=== PATIENT | male | born 1990 | race American Indian/Alaskan Native ===

== ENCOUNTER 2021-08-09 14:50 | Emergency (ER) | payer SELFPAY ==
[2021-08-09] MEDS ORDERED: charcoal activated SOLUTION 25 GM/120 ML PO ONE (15:12)
--- NOTE | 2021-08-09 15:12 | Emergency Department Report ---
ED Psych HPI - General Stated Complaint: SI Time Seen by Provider: 08/09/21 15:11 - History of Present Illness Initial Comments: Patient was brought in as an overdose and psychiatric patient. He took approximately 5 Tylenol. He states that "there were too many things going on in his head."Patient states that his does not love him anymore. He took Tylenol because of this. He states that he took 5 or 6. He promptly vomited and did not keep them down. He still wants to hurt himself and states that he was trying to hurt himself by the overdose. He is not hearing voices. He is not homicidal. He has never tried to do anything like this before. He denies taking any other substance or medication. - Related Data Allergies Allergy/AdvReac Type Severity Reaction Status Date / Time No Known Allergies Allergy Unverified 08/09/21 15:14 ED Review of Systems ROS: Stated complaint: SI Other details as noted in HPI Comment: All other systems reviewed and negative Constitutional: denies: fever Eyes: denies: vision change ENT: denies: throat pain Respiratory: denies: cough Cardiovascular: denies: chest pain Endocrine: denies: unexplained weight loss Gastrointestinal: as per HPI, vomiting. denies: abdominal pain Genitourinary: denies: dysuria Musculoskeletal: denies: back pain Skin: denies: rash Neurological: denies: headache Psychiatric: as per HPI, suicidal thoughts Hematological/Lymphatic: denies: easy bruising ED Past Medical Hx - Past Medical History Previous Medical History?: No - Family History Family history: no significant ED Physical Exam - General Limitations: No Limitations, Other ( Pulse ox is noted and normal.) General appearance: alert, in no apparent distress - Head Head exam: Present: atraumatic, normocephalic, normal inspection - Eye Eye exam: Present: normal appearance, EOMI. Absent: scleral icterus - ENT ENT exam: Present: normal exam, normal orophraynx, mucous membranes moist - Neck Neck exam: Present: normal inspection. Absent: meningismus - Respiratory Respiratory exam: Present: normal lung sounds bilaterally. Absent: respiratory distress - Cardiovascular Cardiovascular Exam: Present: regular rate, normal rhythm - GI/Abdominal GI/Abdominal exam: Present: soft. Absent: tenderness - Extremities Exam Extremities exam: Present: normal capillary refill - Back Exam Back exam: Absent: CVA tenderness (R), CVA tenderness (L) - Neurological Exam Neurological exam: Present: alert, oriented X3, normal gait. Absent: motor sensory deficit - Psychiatric Psychiatric exam: Present: flat affect, suicidal ideation - Skin Skin exam: Present: warm, dry ED Course Vital Signs 08/09/21 15:11 Temperature 99.1 F Pulse Rate 71 Respiratory 16 Rate Blood Pressure 141/80 [Left] O2 Sat by Pulse 99 Oximetry - Reevaluation(s) Reevaluation #1: 08/09/21 15:01 Patient was seen upon arrival. Hold was placed. Orders were placed. ED Medical Decision Making - Medical Decision Making Patient came in as an overdose. He admits to being suicidal. He was placed on a hold. Labs have been ordered for medical clearance. Psychiatric services will need to see the patient. Critical Care Time: No Critical care attestation.: If time is entered above; I have spent that time in minutes in the direct care of this critically ill patient, excluding procedure time. ED Disposition Clinical Impression: Suicidal ideation, Overdose Disposition: 30 STILL A PATIENT Is pt being admited?: No Condition: Stable
[2021-08-09 15:39] LABS: Hematocrit 41.8 % (35.5-45.6); Hemoglobin 14.7 gm/dl (11.8-15.2); Mean Corpuscular HGB Conc 35 % (32-34); Mean Corpuscular Volume 86 fl (84-94); Platelet Count 290 K/mm3 (140-440); Red Blood Count 4.89 M/mm3 (3.65-5.03); Red Cell Distribution Width 13.3 % (13.2-15.2)
[2021-08-09 16:02] LABS: Alanine Aminotransferase 25 units/L (7-56); Albumin 4.4 g/dL (3.9-5); BUN/Creatinine Ratio 8; Blood Urea Nitrogen 7 mg/dL (9-20); Hemolysis Index 22
[2021-08-09 16:18] LABS: Amphetamine Screen,Urine Negative; Benzodiazepines Screen,Urine Negative; Cannabinoid Screen,Urine Negative; Cocaine Screen,Urine Negative; Methadone Screen,Urine Negative; Opiate Screen,Urine Negative
[2021-08-09 18:50] LABS: Basophils % (Auto) 0.8 % (0.0-1.8); Eosinophils # (Auto) 0.1 K/mm3 (0.0-0.4); Eosinophils % (Auto) 1.7 % (0.0-4.3); Hematocrit 42.5 % (35.5-45.6); Hemoglobin 14.8 gm/dl (11.8-15.2); Lymphocytes # (Auto) 2.3 K/mm3 (1.2-5.4); Lymphocytes % (Auto) 48.1 % (13.4-35.0); Mean Corpuscular HGB Conc 35 % (32-34); Mean Corpuscular Volume 87 fl (84-94); Monocytes # (Auto) 0.6 K/mm3 (0.0-0.8); Monocytes % (Auto) 12.7 % (0.0-7.3); Platelet Count 291 K/mm3 (140-440); Red Blood Count 4.89 M/mm3 (3.65-5.03); Red Cell Distribution Width 13.2 % (13.2-15.2)
[2021-08-09 19:52] LABS: Bilirubin,Urine Negative (Negative); Blood,Urine Negative (Negative); Color,Urine Yellow (Yellow)
[2021-08-09 19:53] LABS: Protein,Urine <15 mg/dL mg/dL (Negative)
[2021-08-09 19:55] LABS: WBC,Urine < 1.0 /HPF (0.0-6.0)
[2021-08-10 10:26] VITALS: BP 104/40
--- NOTE | 2021-08-10 11:22 | Consultation ---
History of Present Illness - Reason for Consult Consult date: 08/10/21 Reason for consult: overdose - History of Present Psychiatric Illness Per ED Note: Patient was brought in as an overdose and psychiatric patient. He took approximately 5 Tylenol. He states that "there were too many things going on in his head."Patient states that his does not love him anymore. He took Tylenol because of this. He states that he took 5 or 6. He promptly vomited and did not keep them down. He still wants to hurt himself and states that he was trying to hurt himself by the overdose. He is not hearing voices. He is not homicidal. He has never tried to do anything like this before. He denies taking any other substance or medication. Abraham Bourne is a 30 year old male with no prior psychiatric history who presents to the ED for overdosing. In my interview with the patient,he is calm. The patient reports that he was having an argument with his " I couldn't take it anymore and decided to take Tylenol 5 pills to kill myself." The patient is remorseful for his actions. The patient is employed and states he wants to go home to his and children. He denies any current suicidal/homicidal ideation and denies hallucinations. Psych History Diagnoses: Denies Suicide attempts or Self-harm behavior:Denies Prior psychiatric hospitalizations: Denies Substance Abuse history:Denies Previous psychiatric medications tried:Denies Outpatient treatment: Denies PAST MEDICAL HISTORY: none reported Family Psychiatric History: None reported or documented SOCIAL HISTORY Marital Status: Living Arrangements: Lives with and 2 children Employment Status:employed Access to guns/weapons: Denies Education: 12th Grade History of Abuse: Denies Legal History: none reported REVIEW OF SYSTEMS Constitutional: Negative for weight loss ENT: Negative for stridor Respiratory: Negative for cough or hemoptysis All other systems reviewed and are negative MENTAL STATUS EXAMINATION General Appearance and Behavior: Age appropriate, good hygiene, wearing appropriate clothes, sleeping, cooperative Cooperation: Participating but drowsy Psychomotor Behavior: unremarkable and within normal limits Mood: "OK" Affect and affective range: congruent with mood Thought Process:Goal directed Thought Content: Not suicidal Speech: Normal volume, Regular rate and rhythm, Suicidal Ideation: Denies Homicidal Ideation:Denies Hallucinations: Denies Delusions: None elicited Impulse Control: Questionable Insight and Judgment: Limited insight and fair judgment, Memory: Normal, Attention: Normal Orientation: Alert, oriented Assessment and Plan (1)Unspecified mood disorder- F39 Treatment plan DC 1013 Risks, benefits and alternatives of medications discussed with the patient, questions answered and consent obtained from patient. PSYCHOTHERAPY: Supportive psychotherapy provided MEDICAL: Per primary team DELIRIUM PRECAUTIONS: Please re-orient patient frequently, keep lights on during the day, and minimize benzodiazepines and opiates as these medications could worsen patient's confusion. 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 The aeronautical products sales engineer will provide patient with safety plan and outpatient resources. Will sign off. Thank you for the consult. Please contact with any questions and/or concerns. Case staffed with Dr. Carreon Medications and Allergies Allergies Medications and Allergies Allergies Allergy/AdvReac Type Severity Reaction Status Date / Time No Known Allergies Allergy Unverified 08/09/21 15:14 Home Medications Medication Instructions Recorded Confirmed Last Taken Type No Known Home Medications [No 08/09/21 08/09/21 Unknown History Reported Home Medications] Mental Status Exam - Vital signs Last Vital Signs Temp 98.5 F 08/10/21 10:25 Pulse 66 08/10/21 10:25 Resp 18 08/10/21 10:25 BP 104/40 08/10/21 10:25 Pulse Ox 99 08/10/21 10:25 Results Result Diagrams: 08/09/21 15:56 08/09/21 15:28 Abnormal lab results 08/09/21 08/09/21 08/09/21 Range/Units 15:28 15:28 15:28 MCHC 35 H (32-34) % Lymph % (Auto) (13.4-35.0) % Sequoyah % (Auto) (0.0-7.3) % Seg Neutrophils % (40.0-70.0) % Seg Neutrophils # (1.8-7.7) K/mm3 Sodium (137-145) mmol/L BUN (9-20) mg/dL Salicylates < 0.3 L (2.8-20.0) mg/dL Acetaminophen 5.0 L (10.0-30.0) ug/mL 08/09/21 08/09/21 08/09/21 Range/Units 15:28 15:56 17:53 MCHC 35 H (32-34) % Lymph % (Auto) 48.1 H (13.4-35.0) % Sequoyah % (Auto) 12.7 H (0.0-7.3) % Seg Neutrophils % 36.7 L (40.0-70.0) % Seg Neutrophils # 1.7 L (1.8-7.7) K/mm3 Sodium 136 L (137-145) mmol/L BUN 7 L (9-20) mg/dL Salicylates (2.8-20.0) mg/dL Acetaminophen 5.0 L (10.0-30.0) ug/mL All other labs normal.
--- NOTE | 2021-08-10 11:32 | Emergency Department Report ---
Blank Doc - Documentation Documentation: 30-year-old male 11/19/2014 for suicidal ideation with overdose attempt. Curre ntly on 1013 recommended by mental health Vital signs within normal limit. Labs reviewed No events overnight as per nursing note Patient will be dispositioned as per mental health note recommendation below Assessment and Plan (1)Unspecified mood disorder- F39 Treatment plan DC 1013 Risks, benefits and alternatives of medications discussed with the patient, questions answered and consent obtained from patient. PSYCHOTHERAPY: Supportive psychotherapy provided MEDICAL: Per primary team DELIRIUM PRECAUTIONS: Please re-orient patient frequently, keep lights on during the day, and minimize benzodiazepines and opiates as these medications could worsen patient's confusion. TARGET MAN: Defer to primary Disposition: Do not recommend acute psychiatric inpatient treatment. The as sessor will provide patient with safety plan and outpatient resources. Will sign off. Thank you for the consult. Please contact with any questions and/or concerns. Case staffed with Dr. Carreon
== END 2021-08-10 13:43 | disposition home or self-care (01) ==
LOC: ED 14:50
DX: T39.1X2A Poisoning by 4-Aminophenol derivatives, intentional self-harm, initial encounter (principal); Y92.89 Other specified places as the place of occurrence of the external cause; Z79.899 Other long term (current) drug therapy
CPT/HCPCS: 36415; 80053; 80307; 80320; 81001; 85025; 85027; 99284; G0480